=== PATIENT | male | born 1975 | race African-American/Black ===

== ENCOUNTER 2025-03-16 02:29 | Emergency (ER) | payer MEDICAID ==
[~2025-03-16] VITALS: Ht 175.3 cm; Wt 84.0 kg
[2025-03-16 03:08] LABS: BASOPHILS % 0.5 % (0.0-2.0); EOSINOPHILS % 2.5 % (0.0-5.0); HEMATOCRIT. 45.9 % (42.0-52.0); HEMOGLOBIN. 15.5 g/dL (14.0-18.0); LYMPHOCYTES % 52.6 % (20.0-50.0); MONOCYTES % 13.7 % (2.0-8.0); NEUTROPHILS % 30.7 % (40.0-76.0); RED BLOOD CELL COUNT 5.15 mill/uL (4.7-6.1); RED CELL DISTRIBUTION WIDTH 14.6 % (11.6-14.6)
[2025-03-16 03:22] LABS: CREATININE 1.1 mg/dL (0.6-1.3); UREA NITROGEN BLOOD 8 mg/dL (9-23)
[2025-03-16 03:23] LABS: TROPONIN I HIGH SENSITIVITY 37 ng/L (3.0-53)
[2025-03-16 03:31] LABS: MEAN PLATELET VOLUME 10.1 fl (7.4-10.4)
[2025-03-16 03:32] LABS: PLATELET 180 x1000/uL (130-400)
[2025-03-16] MEDS: FAMOTIDINE 20MG TABLET PO ONE (03:33)
[2025-03-16] MEDS: MAGNESIUM/ALUMINUM HYDROXIDE/SIMETHICONE 30ML UDC PO STA (03:33)
[2025-03-16 03:50] LABS: ASPARTATE AMINOTRANSFERASE 44 IU/L (<34); BILIRUBIN DIRECT 0.3 mg/dL (<=3.0); BILIRUBIN TOTAL 0.9 mg/dL (0.1-1.0); PROTEIN TOTAL 7.4 g/dL (6.0-8.3)
[2025-03-16] MEDS ORDERED: MAG355OR21 MT (04:52)
[2025-03-16] MEDS ORDERED: FAMO40TA7 MT (04:52)
[2025-03-16 05:34] LABS: TROPONIN I HIGH SENSITIVITY 37 ng/L (3.0-53)
[2025-03-16 06:15] VITALS: BP 147/90; PULSE 60; RESP 13; TEMP 36.8; O2SAT 99
== END 2025-03-16 06:20 | disposition home or self-care (01) ==
LOC: ER 02:29
DX: K21.9 Gastro-esophageal reflux disease without esophagitis (principal); R07.89 Other chest pain; I10 Essential (primary) hypertension
CPT/HCPCS: 36415; 71045; 80048; 80076; 83880; 84484; 85025; 93005; 99285

== ENCOUNTER 2025-03-25 23:39 | Emergency (ER) | payer MEDICAID ==
[~2025-03-25] VITALS: Ht 177.8 cm; Wt 94.0 kg
[~2025-03-25 23:39] MED LIST: FAMO40TA7 MT; MAG355OR21 MT
[2025-03-25 23:40] VITALS: O2SAT 100
[2025-03-26 00:17] LABS: HEMATOCRIT. 45.1 % (42.0-52.0); HEMOGLOBIN. 15.2 g/dL (14.0-18.0); MEAN PLATELET VOLUME 10.2 fl (7.4-10.4); PLATELET 185 x1000/uL (130-400); RED BLOOD CELL COUNT 5.06 mill/uL (4.7-6.1); RED CELL DISTRIBUTION WIDTH 14.1 % (11.6-14.6)
[2025-03-26 00:27] LABS: CREATININE 1.1 mg/dL (0.6-1.3); UREA NITROGEN BLOOD 7 mg/dL (9-23)
[2025-03-26 00:28] LABS: TROPONIN I HIGH SENSITIVITY 51 ng/L (3.0-53)
[2025-03-26] MEDS ORDERED: AMLO5TAB88 MT (01:09)
[2025-03-26] MEDS ORDERED: IBUP-2029 MT (01:17)
[2025-03-26] MEDS ORDERED: METH-653 MT (01:17)
[2025-03-26 01:38] VITALS: BP 150/89; PULSE 50; RESP 13; TEMP 36.7; O2SAT 98
[2025-03-26 06:05] LABS: BASOPHILS % MANUAL 1.0 % (0.0-2.0); EOSINOPHILS % MANUAL 1.0 % (0.0-5.0); LYMPHOCYTES % MANUAL 62.0 % (20.0-50.0); MONOCYTES % MANUAL 8.0 % (2.0-8.0); NEUTROPHILS % MANUAL 28.0 % (45.0-75.0); PLATELET ESTIMATE NORMAL
== END 2025-03-26 01:39 | disposition home or self-care (01) ==
LOC: ER 23:39
DX: I10 Essential (primary) hypertension (principal); Z79.899 Other long term (current) drug therapy
CPT/HCPCS: 36415; 71045; 80048; 84484; 85025; 93005; 99285